=== PATIENT | female | born 1990 | race African-American/Black ===

== ENCOUNTER 2016-10-31 13:39 | Emergency (ER) | payer OTHER ==
--- NOTE | 2016-10-31 14:24 | ED Physician Documentation ---
General Adult - HISTORIAN Historian: patient - HPI Stated Complaint: Left AC hematoma Chief Complaint: Upper Extremity Injury Onset: minutes Timing: still present Severity: mild Context: occured after needle was withdrawn while giving blood Further Comments: yes (Patint give blood today at [facility], they has some problems with it getting started. Patient started to develop a hematoma to the area when the needle was removed. No bleeding problems noted. Was advised to come and get evaluation at ED.) - ROS CONST: no problems. denies: fever - PAST HX Past History: none Allergies/Adverse Reactions: Allergies Allergy/AdvReac Type Severity Reaction Status Date / Time No Known Allergies Allergy Verified 10/31/16 13:53 Home Medications: Ambulatory Orders Medication Instructions Recorded Norgestimate-Ethinyl Estradiol 1 tab PO DAILY 10/31/16 [Trinessa Tablet] - SOCIAL HX Smoking History: non-smoker Alcohol Use: none Drug Use: none - FAMILY HX Family History: No - VITAL SIGNS Vital Signs: Vital Signs Temp Pulse Resp BP Pulse Ox 98.2 F 96 H 18 124/82 98 10/31/16 13:53 10/31/16 13:53 10/31/16 13:53 10/31/16 13:53 10/31/16 13:53 - REVIEWED ASSESSMENTS Nursing Assessment Reviewed: Yes Vitals Reviewed: Yes General Adult Physical Exam - PHYSICAL EXAM GENERAL APPEARANCE: no distress RESPIRATORY: no resp distress, chest non-tender, breath sounds normal. No: wheezes, rales, rhonchi CVS: reg rate & rhythm, heart sounds normal, equal pulses, no murmur SKIN: other (8cm hematoma to the left anticubital fossa. No larger then the outline. Minimal tenderness noted.) EXTREMITIES: normal range of motion NEURO: oriented X3, cognition normal Discharge Clincal Impression: Hematoma Referrals: Primary Doctor,No [Primary Care Provider] - 2 Days Additional Instructions: Keep pressure dressing on area for the next 8-12 hours. If you have any further problems to return to the ED. Home Medications: Ambulatory Orders Norgestimate-Ethinyl Estradiol [Trinessa Tablet] 1 tab PO DAILY 10/31/16 Condition: Stable Disposition: 01 HOME, SELF-CARE Decision to Admit: NO Date of Decison to Admit: 10/31/16 Decision Time: 14:24
[2016-10-31 14:37] VITALS: BP 124/74
== END 2016-10-31 14:36 | disposition home or self-care (01) ==
LOC: ED 13:39
DX: S40.012A Contusion of left shoulder, initial encounter (principal); X58.XXXA Exposure to other specified factors, initial encounter; Y93.9 Activity, unspecified; Y99.9 Unspecified external cause status
CPT/HCPCS: 99283